=== PATIENT | female | born 1990 | race Caucasian/White ===

== ENCOUNTER 2023-08-21 17:33 | Emergency (ER) | payer OTHER, SELFPAY ==
[2023-08-21 17:42] VITALS: BP 163/99
[2023-08-21 18:09] LABS: % Basophils 0.5 % (0-2); % Eosinophils 0.7 % (0-6); % Immature Granulocytes 0.2 % (0-0.5); % Lymphocytes 49.4 % (20.5-51.1); % Monocytes 5.3 % (1.7-9.3); % Neutrophils 43.9 % (42.2-75.2); Absolute Eosinophils 0.1 10^3/uL (0-0.7); Absolute Lymphocytes 4.3 10^3/uL (1.2-3.4); Absolute Monocytes 0.5 10^3/uL (0.1-0.6); Absolute Neutrophils 3.8 10^3/uL (1.4-6.5); Hematocrit 40.2 % (37.0-47.0); Hemoglobin 14.5 g/dL (12.0-16.0); Mean Corp Hgb Conc. 36.1 g/dL (33.0-37.0); Mean Corpuscular Hgb 29.2 pg (27.0-31.0); Mean Platelet Volume 8.9 fL (7.4-10.4); Nucleated Red Blood Cells % 0 %; Platelet Count 287 10^3/uL (130-400); Red Blood Cell Count 4.96 10^6/uL (4.20-5.40); Red Cell Dist. Width 12.5 % (11.5-14.5); White Blood Cell Count 8.7 10^3/uL (4.8-10.8)
[2023-08-21 18:24] LABS: ALT (SGPT) 19 U/L (0-35); AST (SGOT) 26 U/L (14-36); Albumin 5.1 g/dl (3.5-5.0); Alkaline Phosphatase 70 U/L (38-126); Blood Urea Nitrogen 15 mg/dl (7-17); Calcium 9.8 mg/dl (8.4-10.2); Carbon Dioxide 26 mmol/L (22-30); Chloride 105 mmol/L (98-107); Glucose 90 mg/dl (70-99); Sodium 140 mmol/L (135-145); Total Bilirubin 0.7 mg/dl (0.2-1.3); Total Protein 8.2 g/dl (6.3-8.2); eGFR > 60.00
[2023-08-21 18:32] LABS: Troponin I < 0.012 ng/ml
--- NOTE | 2023-08-21 19:33 | ED.GENMED ---
History of Present Illness
General
Chief Complaint: Numbness
Time Seen by Provider: 08/21/23 19:33
Travel History
Have you had any contact with someone who has COVID-19?: No
Do you have any symptoms of coronavirus? Fever > 100 degrees, chills, cough, shortness of breath, sore throat, loss of taste or smell, muscle aches, or headache?: No
History of Present Illness
History of Present Illness:
HPI: Patient presents with paresthesias that affects overall body regions including upper extremities and feet and in the perioral region. She was also concerned because her friend recently of a ruptured cerebral aneurysm. The patient does
not have any diplopia but does report some 'black spots' at times. At times that she feels her toes go numb but during exam she does not have loss of sensation. She states she is under a lot of stress and anxiety.
EXAM:
GENERAL: Well appearing in no distress
HEENT: Moist oral mucosa, there is no disconjugate gaze
CARDIOVASCULAR: No murmurs, normal heart rate, regular rhythm, No chest wall tenderness
PULMONARY: No respiratory distress, breath sounds are clear and equal
ABDOMEN: Soft with no peritoneal signs, no tenderness
NEUROLOGIC: Excellent strength all extremities, no coordination deficits, although she reports numbness, she has no sensory deficits on physical examination
PSYCHIATRIC: Appropriate mental status, normal insight and judgement
EXTREMITIES: Nontender, no edema, moves all extremities equally
SKIN: No rash, no lesions
TIME OF INITIAL ENCOUNTER: 7:35 PM
NUMBER AND COMPLEXITY OF PROBLEMS ADDRESSED AT THE ENCOUNTER
� Chronic conditions affecting care: Has had and breast augmentation in the past but otherwise no sick past medical history
� Acute Exacerbation and/or Progression of Chronic Illness: This is an acute problem
� Differential Diagnosis includes: Anxiety, electrolyte abnormality, MS, doubt intracranial pathology
AMOUNT AND/OR COMPLEXITY OF DATA TO BE REVIEWED AND ANALYZED
� I performed an independent evaluation of and my interpretation is:
EKG: Sinus 76, sinus arrhythmia noted, normal axis, no acute ST abnormality
CT: Brain CT personally reviewed and I see no acute abnormality
X-rays:
Laboratory Studies: CBC normal, chemistries unremarkable
Other:
� Review of other/old records: I reviewed blood work from 2021 that was relatively unremarkable
� Clinical information was obtained by an independent historian: I spoke to at bedside
� Prescriptions/Medications Considered but not given:
� Further testing considered but not performed: The patient has a nonfocal neurologic examination therefore we will hold off on any further imaging at this time. However I do recommend that she follows up with neurology.
RISK OF COMPLICATIONS AND/OR MORBIDITY OR MORTALITY OF PATIENT MANAGEMENT
� Social determinants of health affecting care: Lives at home.
� Discussion with other providers:
� Escalation of care including admission/observation vs risk of discharge considered: Nonfocal neuroexam. To follow with neurology as an outpatient. Suspect stress/anxiety as a major component of her symptoms.
Past History
Past History
ED Past Medical History: None
ED Past Surgical History: and Other (Breast augmentation)
Social History
Tobacco: Non-smoker
Personal:
Living: with family
Employment: Employed
Phy Exam
Physical Exam
Physical Exam:
See HPI
Course
Orders/Labs/Results
Orders:
Orders
08/21/23 17:45
Electrocardiogram (*1) Urgent
Reason for Study: Other
Other Reason for Exam: numbness
CT Head W/o Iv Contrast Urgent
Comment:
Reason For Exam: numbness
08/21/23 17:46
EKG- Treatment ONCE
08/21/23 18:02
Complete Blood Count/With Diff Urgent
Comprehensive Metabolic Panel Urgent
Troponin I Urgent
Abnormal Lab Results
08/21/23
18:02
Absolute Lymphs (auto) 4.3 H 10^3/uL
(1.2-3.4)
Albumin 5.1 H g/dl
(3.5-5.0)
08/21/23 18:02
08/21/23 18:02
Vital Signs
Initial and Last Documented VS:
Initial Vital Signs
Temp Pulse Resp BP Pulse Ox
98.3 F 87 18 163/99 98
08/21/23 17:42 08/21/23 17:42 08/21/23 17:42 08/21/23 17:42 08/21/23 17:42
Last Documented Vital Signs
Temp Pulse Resp BP Pulse Ox
98.3 F 87 18 163/99 98
08/21/23 17:42 08/21/23 17:42 08/21/23 17:42 08/21/23 17:42 08/21/23 17:42
*Critical Care Note
Total Time (30-74mins, 75-104mins- exclusive of procedures): Not Applicable
ED Attending Note
-
Portions of this chart may have been created with voice recognition software.� Occasional wrong word or��sound alike� substitutions may have occurred due to the inherent limitations of voice recognition software.
Discharge Plan
Departure
Patient Disposition: Home (Routine Discharge)
Date of Disposition: 08/21/23
Time of Disposition: 19:50
Patient with high blood pressure during this ER visit?: Yes
Discharge Problem:
Paresthesias
Instructions: Paresthesia (DC)
Prescriptions:
No Action
PNV cmb#95-ferrous fumarate-FA [] 1 EACH tablet
1 ea PO DAILY
ferrous sulfate [FeroSul] 325 MG tablet
325 mg PO BID
acetaminophen 325 MG tablet
650 mg PO Q4HPRN PRN (Reason: mild pain) 0RF
sennosides-docusate sodium 1 TABLET tablet
1 tab PO DAILYPRN PRN (Reason: constipation) Qty: 30 0RF
ibuprofen 600 MG tablet
600 mg PO Q6HPRN PRN (Reason: cramps) Qty: 60 0RF
simethicone [Gas Relief 80 (simethicone)] 80 MG tablet,chewable
80 mg PO TIDPRN PRN (Reason: flatulence) 0RF
cyclobenzaprine 10 MG tablet
10 mg PO TIDPRN PRN (Reason: Muscle spasm) Qty: 13 0RF
diclofenac sodium 75 MG tablet,delayed release (DR/EC)
75 mg PO BID Qty: 14 0RF
Referrals:
Nelson Cantu MD [Active] - Follow up in 2-3 days
UNKNOWN - PT DOES,NOT KNOW [Family Provider] -
Activity Restrictions/Additional Instructions:
The cause of your symptoms is unclear. The radiologist read the CAT scan of the brain as normal. I recommend that you follow-up with a neurologist such as Dr. Cantu for further evaluation. Basic blood work was normal. Return here if worse.
Interventions
Interventions:
*Risk Screen - Suicide Last Done: 08/21/23 17:42
*General Assessment Last Done: 08/21/23 17:42
*Neglect/Abuse Screening Last Done: 08/21/23 17:42
Discharge Date and Time
Print Language: LATVIAN
[2023-08-21 20:15] VITALS: BP 112/68
== END 2023-08-21 20:16 | disposition home or self-care (01) ==
LOC: EMR 17:33
PROVIDERS: Student in an Organized Health Care Education/Training Program; EMERGENCY PHYSICIAN Emergency Medicine
DX: R20.2 Paresthesia of skin (principal); R03.0 Elevated blood-pressure reading, without diagnosis of hypertension
CPT/HCPCS: 99285; 70450; 80053; 84484; 85025; 93005

== ENCOUNTER 2025-01-19 19:49 | Emergency (ER) | payer OTHER, SELFPAY ==
[2025-01-19 19:52] VITALS: BP 124/71
[2025-01-19 20:27] LABS: Urine Character Cloudy (Clear)
[2025-01-19 20:44] LABS: Urine Red Blood Cell >100 /HPF (0-2)
[2025-01-19 20:45] LABS: Urine White Cell 40-50 /HPF (0-5)
[2025-01-19 23:06] VITALS: BMI 22.6
[2025-01-19 23:07] VITALS: BP 108/77
[2025-01-19 23:14] LABS: Hematocrit 40.0 % (37.0-47.0); Hemoglobin 14.0 g/dL (12.0-16.0); Mean Corp Hgb Conc. 35.0 g/dL (33.0-37.0); Mean Corpuscular Volume 86.6 fL (81.0-99.0); Nucleated Red Blood Cells % 0 %; Platelet Count 287 10^3/uL (130-400); Red Cell Dist. Width 11.6 % (11.5-14.5)
[2025-01-19 23:35] LABS: HCG, Serum Qualitative Screen Negative
[2025-01-19 23:38] LABS: ALT (SGPT) 19 U/L (0-35); AST (SGOT) 18 U/L (14-36); Albumin 5.1 g/dl (3.5-5.0); Alkaline Phosphatase 64 U/L (38-126); Blood Urea Nitrogen 15 mg/dl (7-17); Calcium 10.2 mg/dl (8.4-10.2); Carbon Dioxide 26 mmol/L (22-30); Chloride 101 mmol/L (98-107); Estimated Creatinine Clearance 124 ml/min; Glucose 89 mg/dl (70-99); Potassium 3.7 mmol/L (3.5-5.1); Sodium 136 mmol/L (135-145); Total Protein 7.8 g/dl (6.3-8.2); eGFR > 60.00
[2025-01-20] VITALS: BP 108/68
--- NOTE | 2025-01-20 00:04 | ED.GENMED ---
History of Present Illness
General
Chief Complaint: Urinary Symptoms
Source: patient
Exam Limitations: none
Time Seen by Provider: 01/19/25 23:04
Nursing documentation reviewed up to this point in time: agreed with
History of Present Illness
History of Present Illness:
Note:
CHIEF COMPLAINT(S)
Blood in urine and burning sensation upon urination.
HISTORY OF PRESENT ILLNESS
The patient is a 34-year-old female with no pmh with a chief complaint of hematuria accompanied by dysuria, which began earlier this evening. The patient reports the sudden onset of a burning sensation upon urination, followed by the observation of
bloody urine with visible clots. The patient denies any previous episodes of urinary tract infection and initially thought the symptoms might be indicative of such due to the burning sensation. The patient describes the blood as 'really bloody,'
causing concern regarding its abnormality. She also notes intermittent, mild lower back pain which she describes as coming and going, but with no significant associated abdominal pain. Upon questioning, the patient mentioned a slight tenderness on
the right side but denies it being significant. The patient has no accompanying gastrointestinal symptoms such as nausea or vomiting. She has been feeling generally well in the days leading up to the onset.
The patient reports a past experience with a kidney stone, which resulted in significant discomfort unlike her current symptoms. She denies any recent trauma, urinary accidents, or taking any blood thinners. The patient is otherwise healthy with no
daily medications and denies taking any recent antibiotics.
ALLERGIES
The patient is allergic to sulfonamides, which cause a rash and itching.
MEDICATIONS
No current medications.
PHYSICAL EXAM
General: Well appearing, alert, no acute distress.
Skin: Warm, dry
Head: Normocephalic, atraumatic.
Neck: Supple, trachea midline.
Eye Ears, nose, mouth and throat: Oral mucosa moist.
Cardiovascular: Regular rate and rhythm, no murmurs. Normal peripheral perfusion, No edema.
Respiratory: No wheezes, rales, or rhonchi. Respirations are non-labored.
Gastrointestinal: Abdomen nondistended, non-tender to palpation. No CVA tenderness bilaterally.
Back: No midline spinal tenderness
Musculoskeletal: Normal ROM, normal strength.
Neurological: Alert and oriented to person, place, time, and situation, No focal neurological deficit observed.
Psychiatric: Cooperative, appropriate mood & affect.
PLAN
1. Prescribe an antibiotic to treat suspected urinary tract infection, while considering the patients allergy to sulfonamides and avoiding any related medications.
2. Perform a computed tomography scan to rule out any potential underlying causes such as kidney stones, mass etc.
3. Obtain lab work, including tests to assess kidney function, to ensure no renal impairment.
4. Avoid prescribing Metronidazole (Flagyl) due to a remote past adverse reaction likely related to being ill at the time of previous use.
DIFFERENTIAL DIAGNOSIS
The Differential Diagnosis includes, in no particular order and is not limited to:
1. Urinary Tract Infection
2. Hemorrhagic Cystitis
3. Kidney Stones
4. Bladder Tumor
5. Glomerulonephritis
6. Interstitial Cystitis
7. Pyelonephritis
8. Urethritis
9. Trauma-induced hematuria
10. Menstrual-related urinary bleeding
ECG
-not applicable
CHART REVIEW
Reviewed prior ER physician documentation from 08/21/2023 patient seen for diffuse paresthesias in her body had a unremarkable workup
Reviewed discharge summary from 09/28/2020 patient seen for twin gestation at 35 weeks and 5 days
MDM/DISPOSITION
34-year-old female presents the ER today with concerns of burning with urination, hematuria. She started develop some lower back discomfort in the ER but on exam has no CVA tenderness. She has elevated white blood cell count noted on lab work
consistent with current infection but otherwise CMP unremarkable. Urinalysis is concerning for infection. Patient is sure that the blood is coming from her urine and she is not currently on her menstrual period. She went for CAT scan which
revealed mild bladder wall thickening which could be correlated with cystitis but no signs of obstructive uropathy. Acute hemorrhagic cystitis. Patient will be started on cefpodoxime. Discussed strict return precautions such as fever. Patient
feeling well and requesting to go home. Patient stable for discharge.
Past History
Past History
ED Past Medical History: None
ED Past Surgical History: and Other (Breast augmentation)
Social History
Tobacco: Non-smoker
Personal:
Living: with family
Employment: Employed
Review of Systems
Review of Systems
All Other Systems: ROS reviewed and negative except as documented in HPI and ROS
Phy Exam
Physical Exam
Physical Exam:
see hpi
Course
Orders/Labs/Results
Orders:
Orders
01/19/25 19:56
Test Result ONCE
01/19/25 20:13
Urinalysis Reflex To Culture Urgent
Date Specimen was Collected: 01/19/25
Time Specimen was Collected: 19:56
Urine Microscopic Reflex Cult Urgent
Urine Culture Urgent
LORAINE Source: U
Specimen Description:
Date Specimen was Collected: 01/19/25
Time Specimen was Collected: 19:56
01/19/25 23:07
Complete Blood Count/With Diff Urgent
Comprehensive Metabolic Panel Urgent
HCG, Serum Qualitative Screen Urgent
01/20/25 00:03
CT Abd/pel Without Iv Or Oral Urgent
Reason For Exam: flank pain
01/20/25 01:59
Phenazopyridine HCl [Pyridium] 200 mg PO NOW STA
Abnormal Lab Results
01/19/25 01/19/25
20:13 23:07
WBC 14.5 H 10^3/uL
(4.8-10.8)
Absolute Neuts (auto) 10.0 H 10^3/uL
(1.4-6.5)
Absolute Lymphs (auto) 3.6 H 10^3/uL
(1.2-3.4)
Absolute Monos (auto) 0.7 H 10^3/uL
(0.1-0.6)
Albumin 5.1 H g/dl
(3.5-5.0)
Ur Occult Blood Reflex 4+ A
(Negative)
Leukocyte Esterase Rfl 3+ A
(Negative)
Urine RBC >100 A /HPF
(0-2)
Urine WBC (Reflex) 40-50 A /HPF
(0-5)
Urine Bacteria (Reflex) Moderate A
(Negative)
Urine Albumin (Reflex) 3+ A
(Neg - Trace)
01/19/25 23:07
01/19/25 23:07
Vital Signs
Initial and Last Documented VS:
Initial Vital Signs
Temp Pulse Resp BP Pulse Ox
99.0 F 79 18 124/71 97
01/19/25 19:52 01/19/25 19:52 01/19/25 19:52 01/19/25 19:52 01/19/25 19:52
Last Documented Vital Signs
Temp Pulse Resp BP Pulse Ox
99.0 F 84 18 110/79 96
01/19/25 19:52 01/20/25 01:00 01/20/25 01:00 01/20/25 01:00 01/20/25 01:00
*Pulse Oximetry
SaO2: 99
Oxygen Mode of Delivery: Room air
Patient hypoxic: no
*Critical Care Note
Total Time (30-74mins, 75-104mins- exclusive of procedures): Not Applicable
ED Attending Note
-
Portions of this chart may have been created with voice recognition software.� Occasional wrong word or��sound alike� substitutions may have occurred due to the inherent limitations of voice recognition software.
Discharge Plan
Departure
Patient Disposition: Home (Routine Discharge)
Date of Disposition: 01/20/25
Time of Disposition: 02:04
Patient with high blood pressure during this ER visit?: No
Condition: Good
Discharge Problem:
Acute hemorrhagic cystitis
Instructions: Urinary Tract Infection, Adult (DC), Blood in the Urine (Hematuria), Adult (DC)
Prescriptions:
New
cefpodoxime 200 mg tablet
200 mg PO BID 14 Days Qty: 28 0RF
phenazopyridine 99.5 mg tablet
99.5 mg PO Q8H PRN (Reason: burning) Qty: 6 0RF
No Action
PNV no.95-ferrous fumarate-FA [] 1 EACH tablet
1 ea PO DAILY
ferrous sulfate [FeroSul] 325 MG tablet
325 mg PO BID
acetaminophen 325 MG tablet
650 mg PO Q4HPRN PRN (Reason: mild pain) 0RF
sennosides-docusate sodium 1 TABLET tablet
1 tab PO DAILYPRN PRN (Reason: constipation) Qty: 30 0RF
ibuprofen 600 MG tablet
600 mg PO Q6HPRN PRN (Reason: cramps) Qty: 60 0RF
simethicone [Gas Relief 80 (simethicone)] 80 MG tablet,chewable
80 mg PO TIDPRN PRN (Reason: flatulence) 0RF
cyclobenzaprine 10 MG tablet
10 mg PO TIDPRN PRN (Reason: Muscle spasm) Qty: 13 0RF
diclofenac sodium 75 MG tablet,delayed release (DR/EC)
75 mg PO BID Qty: 14 0RF
Referrals:
Mike Calvo MD [Active, Urology] - Call in 1-3 days for appt
NONE,* [Family Provider, Internal Medicine]
Stand Alone Forms: Return to Work
Activity Restrictions/Additional Instructions:
Please call attached number to schedule follow-up with urology. Please follow-up your primary care provider. Antibiotic called Cefpodoxime has been sent to your pharmacy. Please take 1 tablet every 12 hours for 14 days.
Please stay well hydrated.
PLEASE RETURN TO ER SHOULD YOU DEVELOP ACUTE WORSENING OF YOUR SYMPTOMS, FEVERS OR CHILLS, FLANK PAIN, ABDOMINAL PAIN, INTRACTABLE NAUSEA OR VOMITING, ANY OTHER SIGNS OR SYMPTOMS WORRISOME TO YOU.
Interventions
Interventions:
*Risk Screen - Suicide Last Done: 01/19/25 19:52
*General Assessment Last Done: 01/19/25 19:52
*Neglect/Abuse Screening Last Done: 01/19/25 23:03
*ED- Fall Risk Assessment Last Done: 01/19/25 23:03
*ED COVID-19 Vaccine History Last Done: 01/19/25 23:03
*ED Influenza Vaccine History Last Done: 01/19/25 23:03
*Nursing Disposition Last Done: 01/20/25 02:22
ED-Female Genitourinary Assessment Last Done: 01/19/25 23:03
Discharge Date and Time
Discharge Date/Time: 01/20/25 02:23
Print Language: MAORI
[2025-01-20 01:00] VITALS: BP 110/79
== END 2025-01-20 02:23 | disposition home or self-care (01) ==
LOC: EMR 19:49
PROVIDERS: Student in an Organized Health Care Education/Training Program; EMERGENCY PHYSICIAN Student in an Organized Health Care Education/Training Program
DX: N30.00 Acute cystitis without hematuria (principal); Z88.2 Allergy status to sulfonamides
CPT/HCPCS: 99284; 74176; 80053; 81003; 81015; 84703; 85025; 87086